=== PATIENT | female | born 1935 | race Caucasian/White ===

== ENCOUNTER 2018-01-14 09:29 | Outpatient (CLI) | payer MEDICARE, OTHER ==
[2018-01-14 10:15] LABS: ABG BASE EXCESS 5.7 mmol/L (-2.0-3.0); ABG HCO3 32.5 mmol/L (22.0-26.0); ABG OXYGEN SATURATION 93.6 % (95-98); ABG PCO2 (T) 56.5 mmHg (32.0-45.0); ABG PH (T) 7.378 (7.350-7.450); ABG PO2 (T) 65.4 mmHg (83-108); ALLEN'S TEST Positive; FCOHb 1.6 % (0.5-1.5); FLOW 3 L/min; FMetHb 0.2 % (0.3-1.12); FO2Hb 91.9 % (94-100); TOTAL HEMOGLOBIN 14.5 G/dl (12.0-16.0)
== END 2018-01-14 23:59 | disposition home or self-care (01) ==
LOC: RT 09:29 → LAB 23:59
PROVIDERS: ATTEND Physician Assistant
DX: J42 Unspecified chronic bronchitis (principal); I10 Essential (primary) hypertension; Z87.891 Personal history of nicotine dependence
CPT/HCPCS: 36600; 82803; 85018

== ENCOUNTER 2018-10-28 09:34 | Inpatient (IN) | payer MEDICARE, OTHER | END 2018-11-01 20:30 | disposition short-term general hospital (02) | LOC: SUR 3N 11-01 08:11 → ER 09:34 → ED HOLD 16:02 → SUR 3N 20:20 | DX: J96.21 Acute and chronic respiratory failure with hypoxia (principal); J18.9 Pneumonia, unspecified organism; J44.1 Chronic obstructive pulmonary disease with (acute) exacerbation; I13.0 Hypertensive heart and chronic kidney disease with heart failure and stage 1 through stage 4 chronic kidney disease, or unspecified chronic kidney disease; E78.5 Hyperlipidemia, unspecified; N18.3 Chronic kidney disease, stage 3 (moderate); I11.0 Hypertensive heart disease with heart failure; I50.9 Heart failure, unspecified; R53.1 Weakness ==